=== PATIENT | male | born 1945 | race Caucasian/White ===

== ENCOUNTER 2021-05-08 12:37 | Outpatient (CLI) | payer MEDICARE, OTHER, SELFPAY ==
--- NOTE | ~2021-05-08 | US_ITS ---
EXAMINATION: US renal BI DATE: 05/08/2021 13:08 INDICATION: Benign hypertension with chronic kidney disease TECHNIQUE: Multiple grayscale and Doppler ultrasound images of the kidneys were obtained. COMPARISON: 06/10/2019 FINDINGS: The right kidney measures 6.6 x 3.3 x 3.6 cm and contains a 2.7 cm cyst. The left kidney me asures 11.8 x 6.0 x 6.0 cm and contains a 1.7 cm cyst. The kidneys demonstrate increased parenchymal echogenicity. There is no hydronephrosis. The bladder is nondistended but otherwise normal in appeara nce. IMPRESSION: 1. 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 Reviewed, dictated and finalized at location A. IMPRESSION: 1. Chronic moderate atrophy of the right kidney with bilateral medical renal di sease.
== END 2021-05-08 12:38 | disposition home or self-care (01) ==
LOC: ANHIMG 12:39
PROVIDERS: PCP Internal Medicine; Visit Provider Internal Medicine Nephrology
DX: I12.9 Hypertensive chronic kidney disease with stage 1 through stage 4 chronic kidney disease, or unspecified chronic kidney disease (principal); N18.31 Chronic kidney disease, stage 3a
CPT/HCPCS: 76775

== ENCOUNTER → 2021-09-12 09:26 | Outpatient (CLI) | payer MEDICARE, OTHER, SELFPAY ==
[2021-09-12 19:33] LABS: SARS-CoV-2 RNA PCR Positive
== END ==
PROVIDERS: PCP Internal Medicine; Visit Provider Internal Medicine
DX: U07.1 COVID-19 (principal)
CPT/HCPCS: C9803; U0003; U0005

== ENCOUNTER 2021-09-16 07:31 | Outpatient (RCR) | payer MEDICARE, OTHER, SELFPAY ==
[2021-09-16] MEDS: ACETAMINOPHEN 325 MG TABLET 650 MG PO (07:34)
[2021-09-16] MEDS: diphenhydrAMINE HCl CAP 25 MG CAPSULE PO (07:35)
[2021-09-16] MEDS: FAMOTIDINE 20 MG TABLET PO (07:35)
[2021-09-16 07:37] VITALS: PULSE 66; TEMP 36.2; O2SAT 99
[2021-09-16 07:41] VITALS: BP 134/81
[2021-09-16 09:00] VITALS: BP 135/73
--- NOTE | 2021-09-17 08:22 | PC.NURSE ---
Called Mr Rodney and he stated he is feeling great today, he has no questions at this time.
== END 2021-09-16 17:00 ==
LOC: AMCINF 07:31
PROVIDERS: PCP Internal Medicine; Visit Provider Internal Medicine Hematology & Oncology
DX: U07.1 COVID-19 (principal)
CPT/HCPCS: A9270; M0245; Q0245